=== PATIENT | female | born 1950 | race Caucasian/White ===

== ENCOUNTER 2021-05-17 09:21 | Emergency (ER) | payer MEDICARE, BC | END 2021-05-17 11:22 | disposition home or self-care (01) | LOC: ER1 09:21 | DX: S63.502A Unspecified sprain of left wrist, initial encounter (principal); I10 Essential (primary) hypertension; Z91.040 Latex allergy status; W19.XXXA Unspecified fall, initial encounter | CPT/HCPCS: 29125; 73110; 99283 ==